=== PATIENT | female | born 1955 | race Caucasian/White ===

== ENCOUNTER 2017-03-10 16:21 | Emergency (ER) | payer SELFPAY ==
[2017-03-10 17:05] LABS: BASOPHIL % 0.3 % (0-2); PLATELET COUNT 317 x10^3mcL (130-400); RED CELL DISTRIBUTION WIDTH 13.8 % (11.5-14.5)
[2017-03-10 17:12] LABS: CALCIUM 9.1 mg/dL (8.5-10.1); CARBON DIOXIDE 26.8 mmol/L (21-32); CHLORIDE SERUM 102 mmol/L (98-107); CREATININE SERUM 0.6 mg/dL (0.6-1.0); GFR1 > 60 mL/min; GLUCOSE SERUM 113 mg/dL (74-106); POTASSIUM SERUM 3.7 mmol/L (3.5-5.1); SODIUM SERUM 136 mmol/L (136-145)
[2017-03-10 17:18] LABS: ALKALINE PHOSPHATASE 65 U/L (46-116); ALT/SGPT 23 U/L (14-59); AMYLASE 77 U/L (25-115); AST/SGOT 20 U/L (15-37); LIPASE 107 IU/L (73-393); TOTAL PROTEIN, SERUM 7.9 g/dL (6.4-8.2)
[2017-03-10 18:20] VITALS: BP 123/80
== END 2017-03-10 18:18 | disposition home or self-care (01) ==
LOC: ED 16:21
PROVIDERS: Specialist
DX: N20.0 Calculus of kidney (principal)
CPT/HCPCS: 83880; J1885; J2405; J3010; J7030